=== PATIENT | female | born 1945 | race Caucasian/White ===

== ENCOUNTER 2019-04-27 09:23 | Day surgery (SDC) | payer MEDICARE, OTHER ==
[~2019-04-27] VITALS: Ht 160 cm; Wt 56.7 kg
[2019-04-27] VITALS (15 sets, daily range): BP systolic 140–180; BP diastolic 60–101; PULSE 61–93; TEMP 97.7
[2019-04-27] MEDS ORDERED: LASIX 40MG TABL40 MG PO (10:07)
[2019-04-27 10:08] LABS: HEMATOCRIT 39.6 % (37.0-47.0); HEMOGLOBIN 13.2 g/dl (12.5-16.0); INR 1.1 (0.8-3.0); MEAN CELL VOLUME 104 fl (80.0-100.0); MEAN CORPUSCULAR HEMOGLOBIN 35 pg (27.0-31.0); MEAN CORPUSCULAR HGB CONC 33 g/dl (33.0-37.0); MEAN PLATELET VOLUME 10.7 fl (7.4-10.4); PLATELET COUNT 129 K/mm3 (130-400); PROTHROMBIN TIME 12.9 SECONDS (9.7-12.8); RED BLOOD COUNT 3.82 M/mm3 (4.10-5.30); REDCELL DISTRIBUTION WIDTH-CV 13.8 % (11.5-14.5)
[2019-04-27 10:15] LABS: CALCIUM 9.5 mg/dL (8.4-10.2); CREATININE, serum 0.69 (0.52-1.25); POTASSIUM 3.4 mmol/L (3.4-5.0)
[2019-04-27] MEDS ORDERED: PRINIVIL20 MG PO (10:19)
[2019-04-27] MEDS ORDERED: TENORMIN100 MG PO (10:20)
[2019-04-27] MEDS ORDERED: SYNTHROID0.05 MG/TA PO (10:21)
[2019-04-27] MEDS ORDERED: ASPIRIN E.C. 8181 MG PO (10:21)
--- NOTE | 2019-04-27 11:29 | NUR ---
SEE MERGE DOCUMENTATION FOR MEDICATION ADMINISTRATION TIMES AND INTRA/POST PROCEDURE SEDATION ASSESSMENTS.
--- NOTE | 2019-04-27 11:50 | NUR ---
Pt back from cathlab, report received from Ephraim LANGSTON. dressing to rt groin in clean and dry, no hematoma palpated, pulses intact. strong dp and pt pulses palpated bilaterally. family members x 3 with patient. pt has a difficult time breathing when lying supine, she presents with tachypnea and some increased wob when lying flat. reverse trendelenberg employed with some relief of these symptoms. ls clear uppers coarse with crackles in bases.
--- NOTE | 2019-04-27 12:15 | NUR ---
site looks good, dressing clean and dry, no hematoma, pulses intact.
--- NOTE | 2019-04-27 12:17 | NUR ---
Pt transferred to 11 at this time. Pt connected to VS monitor; VS's within normal limits at this time. Pt awake and conversing with staff and family. Bedside handoff to IVIS Greenberg. Right femoral access site assessed. Dressing dry and intact. No bleeding, oozing, bruising noted at this time. Site soft to palpation and without s/sx of hematoma. Pt denies chest pain, dizziness, SOA. Pt also denies pain at groing site or into leg. Distal DP pulse +2 to palpation. Education provided to pt and family regarding flat time, movement restrictions, and s/sx to report. All questions answered at this time.
--- NOTE | 2019-04-27 13:00 | NUR ---
pt placed on 2l/nc for sob with o2 sats 86-92 on room air.
--- NOTE | 2019-04-27 13:30 | NUR ---
PT RESTING COMFORTABLY, CMS REMAINS INTACT, NO HEMATOMA. THERE IS AN APPOX DIME SIZED AREA OF BLOOD ON GAUZE PRESENT, PRESSURE HELD FOR 5 MINUTES, AREA DEMARCATED, WCTM. PT IS RESTING MORE COMFORTABLY ON 2L/NC WITH HOB ELEVATED 25DEG.
--- NOTE | 2019-04-27 14:00 | NUR ---
GROIN SOFT, NO HEMATOMA, CMS INTACT, DP AND PT PULSES PALPABLE BILAT. BLOOD ON GAUZE UNCHANGED.
--- NOTE | 2019-04-27 14:30 | NUR ---
HOB 25, GROIN SOFT, NO HEMATOMA, PULSES INTACT, PT HAS BEEN ABLE TO USE BEDPAN, VOIDED MODERATE AMT. PT HAS ALSO BEEN DRINKING A MILKSHAKE WITH NO PROBLEM. FAMILY X 2 AND FRIEND X 1 HAVE BEEN AT BS THROUGHOUT PT'S RECOVERY AND HAVE BEEN VERY HELPFUL AND ATTENTIVE.
--- NOTE | 2019-04-27 15:37 | NUR ---
NO CHANGES, CMS INTACT, SO FURTHER SIGN OF BLEEDING, GROIN SOFT, NO HEMATOMA. PLAN TO CHANGE DRESSING APPROVED BY DR. VALDEZ.
--- NOTE | 2019-04-27 16:00 | NUR ---
PT HAS BEEN ON BEDREST X 4 HOURS, GROIN REMAINS SOFT WITHOUT HEMATOMA, DISTAL PULSES PALPABLE BILATERALL TO LOWER EXTREMITIES, SOILED DRESSING REMOVED AND STERILE 4X4 DRESSING APPLIED WITH TEGADERM. SITE LOOKS GOOD WITHOUT ANY DRAINAGE AT THIS TIME. PT READY FOR DISCHARGE, ORDERS PENDING.
--- NOTE | 2019-04-27 18:15 | NUR ---
Pt has been up to br, escorted by Sigrid LANGSTON. Pt is ambulatory at this time around nurses station with me, her gait is steady. I reviewed the discharge instructions with pt and her daughter, highlighting important points. written instructions were provided. I did call Dr. Mcdowell per pt's request to inquire about follow up plan. He stated his office was working on this, and pt/pt's daughter were encouraged to call the office tomorrow. 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
--- NOTE | 2019-04-27 18:20 | NUR ---
PT ready to go. No changes in her CMS, groin remains soft, dressing clean and dry. She has been breathing much better since she has been up and around, satting 99% on room air, although still dyspneic with exertion. IV dc'd cath intact, dressing applied. escorted to exit via wheelchair.
== END 2019-04-27 17:45 | disposition home or self-care (01) ==
LOC: COL.CAR 09:23
PROVIDERS: Internal Medicine Interventional Cardiology
DX: I71.2 Thoracic aortic aneurysm, without rupture (principal); I35.1 Nonrheumatic aortic (valve) insufficiency; I50.22 Chronic systolic (congestive) heart failure; Z79.82 Long term (current) use of aspirin; Z88.0 Allergy status to penicillin; Z88.2 Allergy status to sulfonamides
CPT/HCPCS: C1760; C1894; J1644; J2250; J3010; Q9967

== ENCOUNTER 2021-04-29 12:38 | Emergency (ER) | payer MEDICARE, OTHER ==
[~2021-04-29] VITALS: Ht 160 cm; Wt 59.1 kg
[~2021-04-29 12:38] MED LIST: ASPIRIN E.C. 8181 MG PO; CORDARONE200 MG/TAB PO; COUMADIN 1MG1 MG/TAB PO; COUMADIN 2MG2 MG/TAB PO; K-DUR 10 MEQ T10 MEQ PO; LASIX 40MG TABL40 MG PO; LOPRESSOR 550 MG/TAB PO; PERCOCET 325 MG1 TA2 PO; PRINIVIL20 MG PO; SYNTHROID0.05 MG/TA PO; TENORMIN100 MG PO
[2021-04-29 13:18] LABS: MEAN CELL VOLUME 104 fl (80.0-100.0); MEAN CORPUSCULAR HEMOGLOBIN 35 pg (27.0-31.0); MEAN CORPUSCULAR HGB CONC 33 g/dl (33.0-37.0); MEAN PLATELET VOLUME 12.7 fl (7.4-10.4); PLATELET COUNT 103 K/mm3 (130-400); RED BLOOD COUNT 3.48 M/mm3 (4.10-5.30); REDCELL DISTRIBUTION WIDTH-CV 14.3 % (11.5-14.5)
[2021-04-29 13:32] LABS: HEMATOCRIT 36.3 % (37.0-47.0)
[2021-04-29 13:35] LABS: ALBUMIN 3.6 gm/dL (3.4-4.8); BILIRUBIN,TOTAL 1.2 mg/dL (0.2-1.2); CALCIUM 9.3 mg/dL (8.4-10.2); CREATININE, serum 1.12 mg/dL (0.57-1.11); POTASSIUM 4.2 mmol/L (3.5-4.5); TOTAL PROTEIN 7.2 gm/dL (6.2-8.1)
[2021-04-29 13:57] LABS: BAND 2 % (0-10); BASOPHIL 1 % (0-2); EOSINOPHIL 2 % (0-4)
[2021-04-29 14:01] LABS: PLATELET ESTIMATE DECREASED (NORMAL)
[2021-04-29 14:07] LABS: LYMPHOCYTE 14 % (20.0-51.0)
[2021-04-29 14:08] LABS: NEUTROPHILS 69 % (42.0-75.2)
[2021-04-29 15:11] LABS: COLLECTION METHOD CLEAN CATCH
[2021-04-29 15:27] LABS: MUCOUS Present /lpf; PH 6 (5-8); SQUAMOUS EPITHELIAL 0-2 /hpf; URINE APPEARANCE Hazy; URINE BACTERIA None Seen /hpf; URINE BILIRUBIN Negative (NEGATIVE); URINE BLOOD 1+ (NEGATIVE); URINE COLOR Yellow; URINE GLUCOSE Negative (NEGATIVE); URINE KETONE Negative (NEGATIVE); URINE LEUKOCYTE ESTERASE Negative (NEGATIVE); URINE NITRATE Negative (NEGATIVE); URINE PROTEIN(semi-quant) Negative (NEGATIVE); URINE RBC 0-2 /hpf; URINE UROBILINOGEN Negative (NEGATIVE)
[2021-04-29 16:15] LABS: HEMOGLOBIN 11.3 g/dl (12.5-16.0)
[2021-04-29 16:44] LABS: PROTHROMBIN TIME 56.7 SECONDS (9.7-12.8)
[2021-04-29 17:57] VITALS: BP 153/77; PULSE 122; TEMP 97.6
[2021-04-29 18:03] VITALS: BP 162/88; PULSE 118; TEMP 97.7
[2021-04-29 18:25] VITALS: BP 153/84; PULSE 120
[2021-04-29 19:06] LABS: INR 1.2 (0.8-3.0); PROTHROMBIN TIME 13.7 SECONDS (9.7-12.8)
== END 2021-04-29 18:39 | disposition short-term general hospital (02) ==
LOC: COL.ER 12:38
PROVIDERS: Family Medicine
DX: K66.1 Hemoperitoneum (principal); R79.1 Abnormal coagulation profile; I48.91 Unspecified atrial fibrillation; Z20.822 Contact with and (suspected) exposure to COVID-19; Z90.49 Acquired absence of other specified parts of digestive tract; Z79.01 Long term (current) use of anticoagulants
CPT/HCPCS: J0692; J1200; J2930; J3430; J7030; J7168; Q9967